=== PATIENT | male | born 1960 | race Caucasian/White ===

== ENCOUNTER 2020-10-14 14:56 | Emergency (ER) | payer OTHER ==
[2020-10-14] MEDS ORDERED: DEXAMETHASONE SOD PHOSPHATE INJ 4 MG/1 ML VIAL IV ONE (18:49)
[2020-10-14] MEDS ORDERED: NORMAL SALINE 1000 ML 1,000 ML IV ONE (18:50)
[2020-10-14] MEDS ORDERED: IPRATROPIUM/ALBUTEROL 0.5-2.5 MG/3 ML AMPUL NEB ONE (18:50)
[2020-10-14] MEDS ORDERED: KETOROLAC TROMETHAMINE INJ/PF 30 MG/1 ML SDV IV ONE (18:51)
[2020-10-14] MEDS ORDERED: ONDANSETRON HCL INJ/PF 4 MG/2 ML SDV IV ONE (18:51)
--- NOTE | 2020-10-14 18:58 | ER Document Report ---
ED General - General Chief Complaint: Cough Stated Complaint: COUGH,CONGESTION,DIARRHEA Time Seen by Provider: 10/14/20 16:49 Primary Care Provider: IKE MORELOS MD [Primary Care Provider] - Follow up as needed Mode of Arrival: Ambulatory Information source: Patient Notes: Patient is a 60-year-old male coming in today with chief complaints of symptoms consistent with COVID-19 diagnosis. Patient reports pleuritic chest pain, intractable cough, nausea, diarrhea, body aches, chills, and weakness. He had an instant test done a couple of days ago and was told that he had coronavirus. Said that if he got worse that he needed to come to the ER. Patient hoping to get some treatment for his symptoms. - Related Data Allergies/Adverse Reactions: No Known Allergies Allergy (Verified 10/14/20 16:38) Past Medical History - Social History Smoking Status: Former Smoker Chew tobacco use (# tins/day): No Frequency of alcohol use: Rare Drug Abuse: None Family History: Reviewed & Not Pertinent - Past Medical History Cardiac Medical History: Reports: Hx Heart Attack, Hx Hypercholesterolemia Past Surgical History: Reports: Hx Cardiac Catheterization - stent Review of Systems - Review of Systems Notes: Constitutional: No fevers. Positive body aches, positive malaise, positive chills EENT: No eye redness. No eye pain. No ear pain. No sore throat. Cardiovascular: + pleuritic chest pain. No palpitations. Respiratory: Positive for cough, positive for shortness of breath Gastrointestinal: No abdominal pain. No nausea, vomiting, or diarrhea. Genitourinary: Atraumatic. No lesions. No pain. No discharge. Musculoskeletal: Atraumatic. No swelling. No deformities. Skin: No rash or lesions. Lymphatic: No swollen lymph nodes. Neurologic: No headache. No syncope. Psychiatric: No suicidal or homicidal ideation. Physical Exam - Vital signs Vitals: Temp Pulse Resp BP Pulse Ox 99.8 F 93 20 132/71 H 96 10/14/20 15:03 10/14/20 15:03 10/14/20 15:03 10/14/20 15:03 10/14/20 15:03 - Notes Notes: General: Well-developed, well-nourished. In no acute distress. Non-toxic clive earing. Cardiac: Well-perfused. Regular rate and rhythm. No murmurs, rubs, or gallops. Pulmonary: No respiratory distress. No cyanosis. Bilateral lung fiels are clear to auscultation. Abdominal: Non-distended. Non-rigid. Bowels sounds are present in all four quadrants. No guarding or rebound. HEENT: Head is atraumatic. Conjunctivae not reddened. No tearing. PERRL. EOMI. Orbits atraumatic. No periorbital swelling or erythema. Oropharynx is without erythema, swelling, or exudates. Neck: Supple. No adenopathy. No meningismus. Dermatologic: Warm with good turgor. No rash. Atraumatic. Chest: Atraumatic. No chest wall tenderness to palpation. Musculoskeletal: Moves all extremities well. No range of motion deficits. no muscular or joint tenderness. No paraspinal muscle tenderness. no midline spinal tenderness or step-off. Genitourinary: Examination deferred Neurologic: No gross neurologic deficits. Psychiatric: Normal mood. Course - Re-evaluation Re-evalutation: 10/14/20 21:32 Labs reassuring. Chest x-ray also reassuring. Will start patient on Zithromax 500 daily for 5 days as well as 4 mg of dexamethasone daily for 5 days. Also albuterol inhaler 2 puffs every 4 hours as needed. Return to the ED if worse - Vital Signs Vital signs: Temp Pulse Resp BP Pulse Ox 99.8 F 93 20 132/71 H 96 10/14/20 15:03 10/14/20 15:03 10/14/20 15:03 10/14/20 15:03 10/14/20 15:03 - Laboratory Result Diagrams: 10/14/20 20:22 10/14/20 20:22 Laboratory results interpreted by me: 10/14/20 20:22 Sodium 136.1 L Discharge - Discharge Clinical Impression: COVID-19 Condition: Good Disposition: HOME, SELF-CARE Instructions: Viral Syndrome ([facility]) Prescriptions: Dexamethasone [Decadron] 4 mg PO DAILY 5 Days #5 tablet Albuterol Sulfate [Proair HFA Inhalation Aerosol 8.5 gm MDI] 2 puff IH Q4H PRN #1 mdi PRN Reason: Azithromycin [Zithromax 250 mg Tablet] 500 mg PO DAILY 5 Days #10 tab Referrals: IKE MORELOS MD [Primary Care Provider] - Follow up as needed
--- NOTE | 2020-10-14 19:17 | RADIOLOGY REPORT (SQ) ---
EXAM DESCRIPTION: CHEST 2 VIEWS IMAGES COMPLETED DATE/TIME: 10/14/2020 7:09 pm REASON FOR STUDY: cough/sob/covid+ COMPARISON: None. EXAM PARAMETERS: NUMBER OF VIEWS: two views TECHNIQUE: Digital Frontal and Lateral radiographic views of the chest acquired. RADIATION DOSE: NA LIMITATIONS: none FINDINGS: LUNGS AND PLEURA: Minimal parenchymal opacities in the right lung. Left lung clear. MEDIASTINUM AND HILAR STRUCTURES: No masses or contour abnormalities. HEART AND VASCULAR STRUCTURES: Heart normal size. No evidence for failure. BONES: No acute findings. HARDWARE: None in the chest. OTHER: No other significant finding. IMPRESSION: Minimal parenchymal opacities consistent with the known diagnosis of covid 19. TECHNICAL DOCUMENTATION: JOB ID: [id number] 2010 [employer]- All Rights Reserved Reading location - IP/workstation name: [email or web address]
[2020-10-14 20:36] LABS: ABSOLUTE LYMPHOCYTES (AUTO) 0.9 10^3/uL (0.5-4.7); ABSOLUTE MONOCYTES (AUTO) 0.3 10^3/uL (0.1-1.4); ABSOLUTE NEUT (AUTO) 2.8 10^3/uL (1.7-8.2); BASOPHILS % (AUTO) 0.3 % (0-2); EOSINOPHILS % (AUTO) 0.1 % (0-6); HEMATOCRIT 45.1 % (37.9-51.0); HEMOGLOBIN 15.3 g/dL (13.5-17.0); LYMPHOCYTES % (AUTO) 22.1 % (13-45); MEAN CORPUSCULAR HEMOGLOBIN 30.1 pg (27.0-33.4); MEAN CORPUSCULAR VOLUME 88 fl (80-97); MONOCYTES % (AUTO) 8.3 % (3-13); PLATELET COUNT 157 10^3/uL (150-450); RED CELL DISTRIBUTION WIDTH 13.5 % (11.5-14.0); SEGMENTED NEUTROPHILS % (AUTO) 69.2 % (42-78); TOTAL CELLS COUNTED % (AUTO) 100 %; WHITE BLOOD COUNT 4.1 10^3/uL (4.0-10.5)
[2020-10-14 20:58] LABS: ALKALINE PHOSPHATASE 62 U/L (38-126); ANION GAP 9 (5-19); ASPARTATE AMINO TRANSFERASE 45 U/L (17-59); BILIRUBIN,DIRECT 0.1 mg/dL (0.0-0.4); BILIRUBIN,TOTAL 0.7 mg/dL (0.2-1.3); BLOOD UREA NITROGEN 13 mg/dL (7-20); CALCIUM 8.7 mg/dL (8.4-10.2); CARBON DIOXIDE 27 mmol/L (22-30); CHLORIDE 100 mmol/L (98-107); GLUCOSE 104 mg/dL (75-110); POTASSIUM 4.5 mmol/L (3.6-5.0); TOTAL PROTEIN 7.2 g/dL (6.3-8.2)
[2020-10-14 21:52] VITALS: BP 107/67
== END 2020-10-14 21:49 | disposition home or self-care (01) ==
LOC: ER 14:56
DX: U07.1 COVID-19 (principal); R05 Cough; R19.7 Diarrhea, unspecified; E78.00 Pure hypercholesterolemia, unspecified; I25.2 Old myocardial infarction
CPT/HCPCS: 94640; 99284; 96361; 96374; 96375; 36415; 85025; 80053; 71046; J1100; J1885; J2405; J7030

== ENCOUNTER 2020-10-19 12:46 | Inpatient (IN) | payer OTHER ==
--- NOTE | 2020-10-19 16:33 | RADIOLOGY REPORT (SQ) ---
EXAM DESCRIPTION: CT CHEST WITHOUT IMAGES COMPLETED DATE/TIME: 10/19/2020 4:22 pm REASON FOR STUDY: Covid + COMPARISON: None. TECHNIQUE: CT scan performed of the chest without intravenous contrast. Images reviewed with lung, soft tissue and bone windows. Reconstructed coronal and sagittal MPR images reviewed. All images st ored on PACS. All CT scanners at this facility use dose modulation, iterative reconstruction, and/or weight based d osing when appropriate to reduce radiation dose to as low as reasonably achievable (ALARA). [facility]: Dose Right [facility]: CareDose [facility]: Dose Right [facility]: Teradose 4D [facility]: Snip.ly RADIATION DOSE: mGy. LIMITATIONS: No technical limitations. FINDINGS: LUNGS AND PLEURA: Patchy peripheral bilateral infiltrates involving the upper and lower lo bes. Basilar atelectasis. No suspicious nodules. No effusions. No pathologic adenopathy. HILAR AND MEDIASTINAL STRUCTURES: No identified masses or abnormal nodes. No obvious aneurysm. HEART AND VASCULAR STRUCTURES: No aneurysm. No pericardial effusion. UPPER ABDOMEN: Small nonobstructing stone in the right kidney. THYROID AND OTHER SOFT TISSUES: No masses. No adenopathy. BONES: No significant finding. HARDWARE: None in the chest. OTHER: No other significant findings. IMPRESSION: Bilateral peripheral ground-glass opacities consistent with the clinical history of Covi d 19. TECHNICAL DOCUMENTATION: JOB ID: [id number] Quality ID # [id number]: Final reports with documentation of one or more dose reduction techniques (e.g., Au tomated exposure control, adjustment of the mA and/or kV according to patient size, use of iterative reconstruction technique) 2010 [employer]- All Rights Reserved Reading location - IP/workstation name: [email or web address]
--- NOTE | 2020-10-19 17:36 | EKG REPORT ---
SEVERITY:- ABNORMAL ECG - SINUS RHYTHM NONSPECIFIC ST-T CHANGES- INFERIOR LEADS : Confirmed by: Gerardo Mahoney MD 19-Oct-2020 17:35:45
--- NOTE | 2020-10-19 17:39 | ER Document Report ---
ED General - General Chief Complaint: Shortness Of Breath Stated Complaint: COIVD + DIFFICULTY BREATHING Time Seen by Provider: 10/19/20 15:52 Primary Care Provider: IKE MORELOS MD [Primary Care Provider] - Follow up as needed Mode of Arrival: Ambulatory Information source: Patient - [facility] Notes: Patient presents with shortness of breath. Patient states that on 11 October he tested positive for Covid. He then came to the emergency department on the and received albuterol and steroids but he continues to be short of breath. He states he no longer has fevers body aches or diarrhea but continues to have significant shortness of breath. He states it is severe. It is worse with exertion and better with rest. It is constant. He states he also has severe cough especially with exertion. - Related Data Allergies/Adverse Reactions: No Known Allergies Allergy (Verified 10/19/20 13:34) Past Medical History - General Information source: Patient - Social History Smoking Status: Former Smoker Frequency of alcohol use: None Drug Abuse: None Family History: Reviewed & Not Pertinent - Past Medical History Cardiac Medical History: Reports: Hx Heart Attack, Hx Hypercholesterolemia Past Surgical History: Reports: Hx Cardiac Catheterization - stent Review of Systems - Review of Systems Constitutional: Chills, Fever, Malaise, Recent illness Cardiovascular: denies: Chest pain, Palpitations Respiratory: Cough, Short of breath -: Yes All other systems reviewed and negative Physical Exam - Vital signs Vitals: Temp Pulse Resp BP Pulse Ox 98.0 F 75 16 133/71 H 92 10/19/20 13:06 10/19/20 13:06 10/19/20 13:06 10/19/20 13:06 10/19/20 13:06 Interpretation: Hypoxic, Tachypneic - General General appearance: Appears well, Alert - HEENT Head: Normocephalic, Atraumatic Eyes: Normal Pupils: PERRL - Respiratory Respiratory status: Respiratory distress - mild Breath sounds: Nonproductive cough - Cardiovascular Rhythm: Regular Notes: no jvd - Abdominal Inspection: Normal Distension: No distension - Back Back: Normal, Nontender - Extremities General upper extremity: Normal inspection, Normal color, Normal ROM General lower extremity: Normal inspection, Normal color, Normal ROM, Normal weight bearing. No: Dora's sign - Neurological Neuro grossly intact: Yes Cognition: Normal Orientation: AAOx4 [place] Coma Scale Eye Opening: Spontaneous [place] Coma Scale Verbal: Oriented [place] Coma Scale Motor: Obeys Commands [place] Coma Scale Total: 15 Speech: Normal Motor strength normal: LUE, RUE, LLE, RLE Sensory: Normal - Psychological Associated symptoms: Normal affect, Normal mood - Skin Skin Moisture: Dry Skin Color: Normal Course - Re-evaluation Re-evalutation: 10/19/20 17:45 Patient presents with shortness of breath, positive Covid infection, positive bilateral opacities on CT with tachypnea and hypoxia. He will require admission for further therapy. The patient was evaluated during a global COVID-19 pandemic and that diagnosis was suspected/considered upon their initial presentation. Their evaluation, treatment and testing was consistent with current guidelines for patients who present with complaints or symptoms and may be related to COVID-19. 10/19/20 17:45 - Vital Signs Vital signs: Temp Pulse Resp BP Pulse Ox 98.0 F 75 16 133/71 H 92 10/19/20 13:06 10/19/20 13:06 10/19/20 13:06 10/19/20 13:06 10/19/20 13:06 - Diagnostic Test Radiology reviewed: Image reviewed, Reports reviewed - EKG Interpretation by Ms EKG shows normal: Sinus rhythm Rate: Bradycardia - 57 Rhythm: NSR [place]/QRS: No: Right axis deviation, Left axis deviation Discharge - Discharge Clinical Impression: Pneumonia due to COVID-19 virus, Hypoxia Condition: Serious Disposition: ADMITTED INPATIENT Admitting Provider: Viky (Hospitalist) Unit Admitted: [facility] Referrals: IKE MORELOS MD [Primary Care Provider] - Follow up as needed
[2020-10-19 18:12] LABS: HEMATOCRIT 41.3 % (37.9-51.0); HEMOGLOBIN 14.2 g/dL (13.5-17.0); MEAN CORPUSCULAR HEMOGLOBIN 30.7 pg (27.0-33.4); MEAN CORPUSCULAR HGB CONC 34.4 g/dL (32.0-36.0); MEAN CORPUSCULAR VOLUME 89 fl (80-97); PLATELET COUNT 266 10^3/uL (150-450); RED BLOOD COUNT 4.63 10^6/uL (4.35-5.55); RED CELL DISTRIBUTION WIDTH 13.7 % (11.5-14.0); WHITE BLOOD COUNT 13.4 10^3/uL (4.0-10.5)
[2020-10-19 18:19] LABS: ALBUMIN 3.2 g/dL (3.5-5.0); ALKALINE PHOSPHATASE 80 U/L (38-126); ANION GAP 10 (5-19); ASPARTATE AMINO TRANSFERASE 87 U/L (17-59); BILIRUBIN,DIRECT 0.1 mg/dL (0.0-0.4); BILIRUBIN,TOTAL 0.7 mg/dL (0.2-1.3); BLOOD UREA NITROGEN 18 mg/dL (7-20); CALCIUM 8.2 mg/dL (8.4-10.2); CARBON DIOXIDE 22 mmol/L (22-30); CHLORIDE 107 mmol/L (98-107); GLUCOSE 157 mg/dL (75-110); IRON 30.3 ug/dL (49-181); POTASSIUM 4.3 mmol/L (3.6-5.0); TOTAL PROTEIN 6.4 g/dL (6.3-8.2)
[2020-10-19] MEDS ORDERED: ACETAMINOPHEN 325 MG TABLET PO PRN (18:30)
[2020-10-19 18:31] LABS: ABSOLUTE LYMPHOCYTES# (MANUAL) 0.5 10^3/uL (0.5-4.7); ABSOLUTE MONOCYTES # (MANUAL) 0.3 10^3/uL (0.1-1.4); BASOPHILS % (MANUAL) 0 % (0-2); EOSINOPHILS % (MANUAL) 0 % (0-6); LYMPHOCYTES % (MANUAL) 4 % (13-45); MONOCYTES % (MANUAL) 2 % (3-13); SEGMENTED NEUTROPHILS % (MAN) 94 % (42-78); TOTAL CELLS COUNTED 100
[2020-10-19 18:37] LABS: OVALOCYTES SLIGHT; PLATELET COMMENT ADEQUATE; PLATELET LARGE PRESENT; POIKILOCYTOSIS SLIGHT
[2020-10-19] MEDS ORDERED: ONDANSETRON HCL INJ/PF 4 MG/2 ML SDV IV PRN (18:39)
--- NOTE | 2020-10-19 18:49 | PDOC H&P ---
History of Present Illness Admission Date/PCP: 10/19/20 17:52 IKE MORELOS MD History of Present Illness: LEO CURRY is a 60 year old male with a history of coronary artery disease and a 30-year smoking history who quit 8 years ago who presents with dyspnea. He said he started getting sick on or about 08 October 2020. He said a few days later he went to get tested for Covid on 11 October. He said the test was positive. He came here on 14 October and was given some IV medication, a prescription for dexamethasone and azithromycin, and was sent home. He said he was feeling okay until yesterday when he started getting more short of breath. He said it is more prominent on exertion. He has had a cough. He has not been febrile that he is aware of. His dyspnea on exertion got to the point that he could not walk more than a few steps without getting very short of breath. He is normally very active and works full-time and has no physical limitations. His oxygen saturations are less than 94% on room air in the ER, and his chest imaging showed that he had bilateral alveolar opacities. Past Medical History Cardiac Medical History: Reports: Myocardial Infarction, Hyperlipidema Past Surgical History Past Surgical History: Reports: Cardiac Catheterization - stent Social History Smoking Status: Former Smoker Family History Family History: Reviewed & Not Pertinent Parental Family History Reviewed: Yes Children Family History Reviewed: Yes Sibling(s) Family History Reviewed.: Yes Medication/Allergy Home Medications: Albuterol Sulfate [Proair HFA Inhalation Aerosol 8.5 gm MDI] 2 puff IH Q4H PRN #1 mdi 10/14/20 Azithromycin [Zithromax 250 mg Tablet] 500 mg PO DAILY 5 Days #10 tab 10/14/20 Dexamethasone [Decadron] 4 mg PO DAILY 5 Days #5 tablet 10/14/20 Allergies/Adverse Reactions: No Known Allergies Allergy (Verified 10/19/20 13:34) Review of Systems All systems: reviewed and no additional remarkable complaints except as stated - All systems were reviewed and were negative except as noted in the HPI Physical Exam Vital Signs: Temp Pulse Resp BP Pulse Ox 98.0 F 75 16 133/71 H 92 10/19/20 13:06 10/19/20 13:06 10/19/20 13:06 10/19/20 13:06 10/19/20 13:06 Intake & Output 10/18/20 10/19/20 10/20/20 06:59 06:59 06:59 Weight 96 kg General appearance: PRESENT: no acute distress, cooperative, obese Neck exam: PRESENT: full ROM. ABSENT: carotid bruit, JVD, lymphadenopathy, meningismus, tenderness, thyromegaly Respiratory exam: PRESENT: crackles - Bibasilar, symmetrical, unlabored. ABSENT: accessory muscle use, chest wall tenderness, decreased breath sounds, prolonged expiratory phas, rhonchi, tachypnea, wheezes Cardiovascular exam: PRESENT: RRR, +S1, +S2 Pulses: PRESENT: normal carotid pulses Vascular exam: PRESENT: normal capillary refill GI/Abdominal exam: PRESENT: normal bowel sounds, soft. ABSENT: distended, guarding, rebound, tenderness Extremities exam: ABSENT: clubbing, pedal edema Musculoskeletal exam: PRESENT: normal inspection. ABSENT: deformity Neurological exam: PRESENT: alert, awake, oriented to person, oriented to place, oriented to time, oriented to situation, CN II-XII grossly intact. ABSENT: motor sensory deficit Psychiatric exam: PRESENT: appropriate affect, normal mood Skin exam: PRESENT: dry, warm Results Laboratory Results: 10/19/20 17:45 10/19/20 17:45 WBC 13.4 H RBC 4.63 Hgb 14.2 Hct 41.3 MCV 89 MCH 30.7 MCHC 34.4 RDW 13.7 Plt Count 266 Seg Neutrophils % Not Reportable Impressions: Chest CT 10/19/20 15:55 IMPRESSION: Bilateral peripheral ground-glass opacities consistent with the clinical history of Covid 19. Assessment and Plan - Diagnosis (1) Pneumonia due to COVID-19 virus Is this a current diagnosis for this admission?: Yes (2) Acute hypoxemic respiratory failure Is this a current diagnosis for this admission?: Yes (3) Coronary artery disease Qualifiers: Coronary Disease-Associated Artery/Lesion type: [place] artery [place] vs. transplanted heart: [place] heart Associated angina: without angina Qualified Code(s): I25.10 - Atherosclerotic heart disease of [place] coronary artery without angina pectoris Is this a current diagnosis for this admission?: Yes (4) Former smoker Is this a current diagnosis for this admission?: Yes - Plan Summary Summary: Continue oxygen support. We will started on remdesivir. We will start dexamethasone daily. We will continue his home medications will see her in the computer. His D-dimer was less than 1 so we will just put him on prophylaxis level Lovenox at this point. We will follow the trend his CRP and ferritin. - Time Time Spent with patient: 35 or more minutes Anticipated Discharge Disposition: Unknown Anticipated Discharge Timeframe: Unknown - Inpatient Certification Based on my medical assessment, after consideration of the patient's comorbidities, presenting symptoms, or acuity I expect that the services needed warrant INPATIENT care.: Yes I certify that my determination is in accordance with my understanding of Medicare's requirements for reasonable and necessary INPATIENT services [42 CFR 412.3e].: Yes Medical Necessity: Failure to Improve With Outpatient Therapy, Need Close Monitoring Due to Risk of Patient Decompensation, Need For Continuous Telemetry Monitoring, Risk of Complication if Not Cared For in Hospital
[2020-10-19] MEDS ORDERED: DEXAMETHASONE SOD PHOS INJ 10 MG/1 ML VIAL IV ONE (19:30)
[2020-10-19] MEDS ORDERED: REMDESIVIR 200 MG in NORMAL SALINE 250 ML IV ONE (21:00)
[2020-10-20] MEDS ORDERED: TICAGRELOR 90 MG TABLET ONE (00:41)
[2020-10-20] MEDS: TICAGRELOR 90 MG TABLET PO SCH ×3 (00:54→22:34)
[2020-10-20] MEDS: RANOLAZINE 500 MG TAB.SR.12H PO SCH ×3 (00:54→22:35)
[2020-10-20 06:39] LABS: HEMOGLOBIN 14.1 g/dL (13.5-17.0); MEAN CORPUSCULAR HEMOGLOBIN 30.8 pg (27.0-33.4); MEAN CORPUSCULAR HGB CONC 34.5 g/dL (32.0-36.0); MEAN CORPUSCULAR VOLUME 89 fl (80-97); PLATELET COUNT 253 10^3/uL (150-450); RED BLOOD COUNT 4.59 10^6/uL (4.35-5.55); RED CELL DISTRIBUTION WIDTH 13.7 % (11.5-14.0); WHITE BLOOD COUNT 11.2 10^3/uL (4.0-10.5)
[2020-10-20 06:58] LABS: ALKALINE PHOSPHATASE 71 U/L (38-126); ANION GAP 9 (5-19); ASPARTATE AMINO TRANSFERASE 56 U/L (17-59); BILIRUBIN,DIRECT 0.1 mg/dL (0.0-0.4); BILIRUBIN,TOTAL 0.5 mg/dL (0.2-1.3); BLOOD UREA NITROGEN 21 mg/dL (7-20); C-REACTIVE PROTEIN 81.5 mg/L (<10.0); CALCIUM 8.6 mg/dL (8.4-10.2); CARBON DIOXIDE 24 mmol/L (22-30); CHLORIDE 107 mmol/L (98-107); GLUCOSE 144 mg/dL (75-110); POTASSIUM 4.2 mmol/L (3.6-5.0); TOTAL PROTEIN 6.1 g/dL (6.3-8.2)
[2020-10-20 07:49] LABS: ABSOLUTE MONOCYTES # (MANUAL) 0.3 10^3/uL (0.1-1.4); BASOPHILS % (MANUAL) 0 % (0-2); EOSINOPHILS % (MANUAL) 0 % (0-6); LYMPHOCYTES % (MANUAL) 9 % (13-45); MONOCYTES % (MANUAL) 3 % (3-13); SEGMENTED NEUTROPHILS % (MAN) 88 % (42-78); TOTAL CELLS COUNTED 100
[2020-10-20 07:50] LABS: POIKILOCYTOSIS SLIGHT; TEAR DROP CELLS SLIGHT
[2020-10-20 07:51] LABS: PLATELET COMMENT ADEQUATE
[2020-10-20] MEDS ORDERED: INFLUENZA QUAD (6MOS+) 2020-21 VAC 0.5 ML SYR IM ONE (08:00)
[2020-10-20] MEDS: ENOXAPARIN SODIUM INJ 40 MG/0.4 ML DISP.SYRIN SUBCUT SCH (09:09)
[2020-10-20] MEDS: ASPIRIN 81 MG TABLET, ENT COATED PO SCH (09:10)
[2020-10-20] MEDS: LOSARTAN POTASSIUM 25 MG TABLET PO SCH (09:10)
[2020-10-20] MEDS: PANTOPRAZOLE SODIUM 20 MG TABLET.DR PO SCH (09:10)
[2020-10-20] MEDS: METOPROLOL SUCCINATE 25 MG TAB.SR.24H PO SCH (09:10)
[2020-10-20] MEDS ORDERED: DEXAMETHASONE SOD PHOS INJ 10 MG/1 ML VIAL IV SCH (10:00)
[2020-10-20] MEDS: DEXAMETHASONE SOD PHOSPHATE INJ 4 MG/1 ML VIAL IV SCH ×2 (10:54→22:35)
--- NOTE | 2020-10-20 15:38 | PDOC PROGRESS REPORT ---
Subjective Date:: 10/20/20 Subjective:: No adverse events overnight. No new complaints. Vital signs been stable. SPO2 still very stable on 2 L per nasal cannula at rest. He said that he is fine while he is at rest, but he still gets short of breath with very minimal exertion. Reason For Visit: PNEUMONIA DUE TO COVID-19 VIRUS,HYPOXIA Physical Exam Vital Signs: Temp Pulse Resp BP Pulse Ox 97.7 F 83 18 124/76 95 10/20/20 11:49 10/20/20 13:19 10/20/20 11:49 10/20/20 11:49 10/20/20 11:49 Intake & Output 10/19/20 10/20/20 10/21/20 06:59 06:59 06:59 Intake Total 250 Balance 250 Weight 84.6 kg 84.6 kg General appearance: PRESENT: no acute distress, cooperative, obese Respiratory exam: PRESENT: crackles - Bibasilar, symmetrical, unlabored. ABSENT: accessory muscle use, chest wall tenderness, decreased breath sounds, prolonged expiratory phas, rhonchi, tachypnea, wheezes Cardiovascular exam: PRESENT: RRR, +S1, +S2 Pulses: PRESENT: normal carotid pulses Vascular exam: PRESENT: normal capillary refill GI/Abdominal exam: PRESENT: normal bowel sounds, soft. ABSENT: distended, guarding, rebound, tenderness Extremities exam: ABSENT: clubbing, pedal edema Musculoskeletal exam: PRESENT: normal inspection. ABSENT: deformity Neurological exam: PRESENT: alert, awake, oriented to person, oriented to place, oriented to time, oriented to situation Psychiatric exam: PRESENT: appropriate affect, normal mood Skin exam: PRESENT: dry, warm Results Laboratory Results: 10/20/20 05:42 10/20/20 05:42 10/19/20 10/19/20 10/20/20 17:45 17:45 05:42 WBC 13.4 H 11.2 H RBC 4.63 4.59 Hgb 14.2 14.1 Hct 41.3 41.0 MCV 89 89 MCH 30.7 30.8 MCHC 34.4 34.5 RDW 13.7 13.7 Plt Count 266 253 Seg Neutrophils % Not Reportable Not Reportable Sodium 138.7 Potassium 4.3 Chloride 107 Carbon Dioxide 22 Anion Gap 10 BUN 18 Creatinine 0.76 Est GFR ( Amer) > 60 Glucose 157 H Calcium 8.2 L Iron 30.3 L Ferritin 915.00 H Total Bilirubin 0.7 AST 87 H Alkaline Phosphatase 80 C-Reactive Protein Total Protein 6.4 Albumin 3.2 L 10/20/20 05:42 WBC RBC Hgb Hct MCV MCH MCHC RDW Plt Count Seg Neutrophils % Sodium 139.5 Potassium 4.2 Chloride 107 Carbon Dioxide 24 Anion Gap 9 BUN 21 H Creatinine 0.77 Est GFR ( Amer) > 60 Glucose 144 H Calcium 8.6 Iron Ferritin 796.00 H Total Bilirubin 0.5 AST 56 Alkaline Phosphatase 71 C-Reactive Protein 81.5 H Total Protein 6.1 L Albumin 3.0 L Impressions: Chest CT 10/19/20 15:55 IMPRESSION: Bilateral peripheral ground-glass opacities consistent with the clinical history of Covid 19. Assessment and Plan - Diagnosis (1) Pneumonia due to COVID-19 virus Is this a current diagnosis for this admission?: Yes (2) Acute hypoxemic respiratory failure Is this a current diagnosis for this admission?: Yes (3) Coronary artery disease Qualifiers: Coronary Disease-Associated Artery/Lesion type: [place] artery [place] vs. transplanted heart: [place] heart Associated angina: without angina Qualified Code(s): I25.10 - Atherosclerotic heart disease of [place] coronary artery without angina pectoris Is this a current diagnosis for this admission?: Yes (4) Former smoker Is this a current diagnosis for this admission?: Yes - Plan Summary Summary: Continue oxygen support. Continue remdesivir. Continue dexamethasone daily. We will continue his home medications. His D-dimer was less than 1 so we just put him on prophylaxis level Lovenox at this point. We will follow the trend his CRP and ferritin. - Time Time Spent with patient: 15-24 minutes Anticipated Discharge Disposition: Unknown Anticipated Discharge Timeframe: Unknown
[2020-10-20] MEDS: ATORVASTATIN CALCIUM 80 MG TABLET PO SCH (22:34)
[2020-10-20] MEDS: REMDESIVIR 100 MG in NORMAL SALINE 250 ML IV SCH (22:36)
[2020-10-21 07:13] LABS: HEMATOCRIT 40.1 % (37.9-51.0); HEMOGLOBIN 13.8 g/dL (13.5-17.0); MEAN CORPUSCULAR HEMOGLOBIN 30.6 pg (27.0-33.4); MEAN CORPUSCULAR HGB CONC 34.5 g/dL (32.0-36.0); MEAN CORPUSCULAR VOLUME 89 fl (80-97); PLATELET COUNT 300 10^3/uL (150-450); RED BLOOD COUNT 4.52 10^6/uL (4.35-5.55); RED CELL DISTRIBUTION WIDTH 13.7 % (11.5-14.0); WHITE BLOOD COUNT 15.4 10^3/uL (4.0-10.5)
[2020-10-21 07:23] LABS: ALBUMIN 2.7 g/dL (3.5-5.0); ALKALINE PHOSPHATASE 66 U/L (38-126); ANION GAP 8 (5-19); ASPARTATE AMINO TRANSFERASE 64 U/L (17-59); BILIRUBIN,DIRECT 0.2 mg/dL (0.0-0.4); BILIRUBIN,TOTAL 0.7 mg/dL (0.2-1.3); BLOOD UREA NITROGEN 27 mg/dL (7-20); C-REACTIVE PROTEIN 41.8 mg/L (<10.0); CALCIUM 8.3 mg/dL (8.4-10.2); CARBON DIOXIDE 24 mmol/L (22-30); CHLORIDE 106 mmol/L (98-107); GLUCOSE 153 mg/dL (75-110); POTASSIUM 4.3 mmol/L (3.6-5.0); TOTAL PROTEIN 5.7 g/dL (6.3-8.2)
[2020-10-21 07:59] LABS: ABSOLUTE LYMPHOCYTES# (MANUAL) 0.8 10^3/uL (0.5-4.7); ABSOLUTE MONOCYTES # (MANUAL) 0.5 10^3/uL (0.1-1.4); BAND NEUTROPHILS % (MANUAL) 1 % (3-5); BASOPHILS % (MANUAL) 0 % (0-2); EOSINOPHILS % (MANUAL) 0 % (0-6); LYMPHOCYTES % (MANUAL) 4 % (13-45); MONOCYTES % (MANUAL) 3 % (3-13); SEGMENTED NEUTROPHILS % (MAN) 88 % (42-78); TOTAL CELLS COUNTED 100
[2020-10-21 08:14] LABS: ANISOCYTOSIS SLIGHT; POLYCHROMASIA SLIGHT
[2020-10-21 08:15] LABS: PLATELET COMMENT ADEQUATE; PROMYELOCYTES % (MANUAL) 3 % (0)
[2020-10-21] MEDS: METOPROLOL SUCCINATE 25 MG TAB.SR.24H PO SCH (10:22)
[2020-10-21] MEDS: LOSARTAN POTASSIUM 25 MG TABLET PO SCH (10:30)
[2020-10-21] MEDS: RANOLAZINE 500 MG TAB.SR.12H PO SCH ×2 (10:31→21:21)
[2020-10-21] MEDS: TICAGRELOR 90 MG TABLET PO SCH ×2 (10:31→21:21)
[2020-10-21] MEDS: DEXAMETHASONE SOD PHOSPHATE INJ 4 MG/1 ML VIAL IV SCH ×2 (10:31→21:21)
[2020-10-21] MEDS: PANTOPRAZOLE SODIUM 20 MG TABLET.DR PO SCH (10:31)
[2020-10-21] MEDS: ENOXAPARIN SODIUM INJ 40 MG/0.4 ML DISP.SYRIN SUBCUT SCH (10:31)
[2020-10-21] MEDS: ASPIRIN 81 MG TABLET, ENT COATED PO SCH (10:31)
[2020-10-21] MEDS ORDERED: MORPHINE SULFATE 10 MG/ML INJ IV PRN (11:04)
[2020-10-21] MEDS ORDERED: IPRATROPIUM/ALBUTEROL 0.5-2.5 MG/3 ML AMPUL NEB PRN (11:04)
[2020-10-21 12:10] LABS: PATH REVIEW PATHOLOGIST REVIEWED
--- NOTE | 2020-10-21 13:13 | PDOC PROGRESS REPORT ---
Subjective Date:: 10/21/20 Subjective:: As per admitting physician's note LEO CURRY is a 60 year old male with a history of coronary artery disease and a 30-year smoking history who quit 8 years ago who presents with dyspnea. He said he started getting sick on or about 08 October 2020. He said a few days later he went to get tested for Covid on 11 October. He said the test was positive. He came here on Sep and was given some IV medication, a prescription for dexamethasone and azithromycin, and was sent home. He said he was feeling okay until yesterday when he started getting more short of breath. He said it is more prominent on exertion. He has had a cough. He has not been febrile that he is aware of. His dyspnea on exertion got to the point that he could not walk more than a few steps without getting very short of breath. He is normally very active and works full-time and has no physical limitations. His oxygen saturations are less than 94% on room air in the ER, and his chest imaging showed that he had bilateral alveolar opacities. 10/21/2020. Patient reporting mild improvement of her symptoms, still getting winded when he tries to exert himself, denies any fever, chills, nausea, vomiting. Complaining of nonproductive cough. Vitals have been stable, SPO2 WNL on 2 L. On second day of remdesivir. Reason For Visit: PNEUMONIA DUE TO COVID-19 VIRUS,HYPOXIA Physical Exam Vital Signs: Temp Pulse Resp BP Pulse Ox 98.2 F 58 L 16 131/72 H 91 L 10/21/20 12:09 10/21/20 12:09 10/21/20 12:09 10/21/20 12:09 10/21/20 12:09 Intake & Output 10/20/20 10/21/20 10/22/20 06:59 06:59 06:59 Intake Total 250 707 Output Total 825 Balance 250 -118 Weight 84.6 kg 87.1 kg General appearance: PRESENT: no acute distress, well-developed, well-nourished Head exam: PRESENT: atraumatic, normocephalic Neck exam: ABSENT: carotid bruit, JVD, lymphadenopathy, thyromegaly Respiratory exam: PRESENT: tachypnea, other - Diminished air entry bilaterally. ABSENT: rales, rhonchi, wheezes Cardiovascular exam: PRESENT: RRR. ABSENT: diastolic murmur, rubs, systolic murmur GI/Abdominal exam: PRESENT: normal bowel sounds, soft. ABSENT: distended, guarding, mass, organolmegaly, rebound, tenderness Extremities exam: PRESENT: full ROM. ABSENT: calf tenderness, clubbing, pedal edema Neurological exam: PRESENT: alert, awake, oriented to person, oriented to place, oriented to time, oriented to situation, CN II-XII grossly intact. ABSENT: motor sensory deficit Results Laboratory Results: 10/21/20 05:48 10/21/20 05:48 10/21/20 10/21/20 05:48 05:48 WBC 15.4 H RBC 4.52 Hgb 13.8 Hct 40.1 MCV 89 MCH 30.6 MCHC 34.5 RDW 13.7 Plt Count 300 Seg Neutrophils % Not Reportable Sodium 137.5 Potassium 4.3 Chloride 106 Carbon Dioxide 24 Anion Gap 8 BUN 27 H Creatinine 0.76 Est GFR ( Amer) > 60 Glucose 153 H Calcium 8.3 L Ferritin 947.00 H Total Bilirubin 0.7 AST 64 H Alkaline Phosphatase 66 C-Reactive Protein 41.8 H Total Protein 5.7 L Albumin 2.7 L Impressions: Chest CT 10/19/20 15:55 IMPRESSION: Bilateral peripheral ground-glass opacities consistent with the clinical history of Covid 19. Assessment and Plan - Diagnosis (1) Acute hypoxemic respiratory failure Is this a current diagnosis for this admission?: Yes Plan: Improving. SPO2 WNL on 2 L nasal cannula. Most likely due to COVID-[address] chest on admission bilateral peripheral groundglass opacity consistent with clinical history of COVID-19. Day 2 IV remdesivir. Day 1 IV ceftriaxone. Completed course of azithromycin as outpatient. Continue empiric IV antibiotics, remdesivir, steroids, duo nebs, supplemental oxygen, flutter valve, incentive spirometry. (2) Coronary artery disease Qualifiers: Coronary Disease-Associated Artery/Lesion type: [place] artery [place] vs. transplanted heart: [place] heart Associated angina: without angina Qualified Code(s): I25.10 - Atherosclerotic heart disease of [place] coronary artery without angina pectoris Is this a current diagnosis for this admission?: Yes Plan: Denies any anginal symptoms. Continue home meds. Adjust meds as needed. Outpatient PCP and cardiology follow-up. (3) Former smoker Is this a current diagnosis for this admission?: Yes Plan: Counseled on abstinence. (4) Pneumonia due to COVID-19 virus Is this a current diagnosis for this admission?: Yes Plan: As per patient tested positive for COVID-19 on 10/11/2020. Plan of care as per #1. - Time Time Spent with patient: 25-34 minutes Medications reviewed and adjusted accordingly: Yes Anticipated Discharge Disposition: Home, Self Care Anticipated Discharge Timeframe: within 72 hours
[2020-10-21] MEDS: IPRATROPIUM/ALBUTEROL 0.5-2.5 MG/3 ML AMPUL NEB SCH ×2 (14:00→20:25)
[2020-10-21] MEDS: CEFTRIAXONE 1 GM/D5W RTU 1 GM/50 ML RTUPB IV SCH (14:20)
[2020-10-21] MEDS: GUAIFENESIN/D-METHORPHAN (200-20 MG) SYRUP 10 ML PO SCH ×3 (14:20→21:21)
[2020-10-21] MEDS: ATORVASTATIN CALCIUM 80 MG TABLET PO SCH (21:21)
[2020-10-21] MEDS: REMDESIVIR 100 MG in NORMAL SALINE 250 ML IV SCH (21:21)
[2020-10-22 06:57] LABS: HEMATOCRIT 41.9 % (37.9-51.0); MEAN CORPUSCULAR HEMOGLOBIN 29.6 pg (27.0-33.4); MEAN CORPUSCULAR HGB CONC 33.4 g/dL (32.0-36.0); MEAN CORPUSCULAR VOLUME 89 fl (80-97); PLATELET COUNT 315 10^3/uL (150-450); RED BLOOD COUNT 4.74 10^6/uL (4.35-5.55); RED CELL DISTRIBUTION WIDTH 13.4 % (11.5-14.0); WHITE BLOOD COUNT 14.1 10^3/uL (4.0-10.5)
[2020-10-22 07:27] LABS: ALBUMIN 2.7 g/dL (3.5-5.0); ALKALINE PHOSPHATASE 66 U/L (38-126); ANION GAP 5 (5-19); ASPARTATE AMINO TRANSFERASE 38 U/L (17-59); BILIRUBIN,DIRECT 0.1 mg/dL (0.0-0.4); BILIRUBIN,TOTAL 0.6 mg/dL (0.2-1.3); BLOOD UREA NITROGEN 26 mg/dL (7-20); C-REACTIVE PROTEIN 19.4 mg/L (<10.0); CALCIUM 8.2 mg/dL (8.4-10.2); CARBON DIOXIDE 26 mmol/L (22-30); CHLORIDE 105 mmol/L (98-107); GLUCOSE 144 mg/dL (75-110); POTASSIUM 4.5 mmol/L (3.6-5.0); TOTAL PROTEIN 5.8 g/dL (6.3-8.2)
[2020-10-22 07:31] LABS: ABSOLUTE LYMPHOCYTES# (MANUAL) 0.6 10^3/uL (0.5-4.7); ABSOLUTE MONOCYTES # (MANUAL) 0.3 10^3/uL (0.1-1.4); BASOPHILS % (MANUAL) 0 % (0-2); EOSINOPHILS % (MANUAL) 0 % (0-6); LYMPHOCYTES % (MANUAL) 4 % (13-45); MONOCYTES % (MANUAL) 2 % (3-13); PLATELET CLUMPS PRESENT; PLATELET COMMENT ADEQUATE; RBC MORPHOLOGY COMMENT NORMO-CYTIC/CHROMIC; SEGMENTED NEUTROPHILS % (MAN) 94 % (42-78); TOTAL CELLS COUNTED 100
[2020-10-22] MEDS: IPRATROPIUM/ALBUTEROL 0.5-2.5 MG/3 ML AMPUL NEB SCH ×3 (08:43→20:26)
[2020-10-22] MEDS: RANOLAZINE 500 MG TAB.SR.12H PO SCH ×2 (09:08→21:30)
[2020-10-22] MEDS: LOSARTAN POTASSIUM 25 MG TABLET PO SCH (09:08)
[2020-10-22] MEDS: METOPROLOL SUCCINATE 25 MG TAB.SR.24H PO SCH (09:08)
[2020-10-22] MEDS: ASPIRIN 81 MG TABLET, ENT COATED PO SCH (09:08)
[2020-10-22] MEDS: DEXAMETHASONE SOD PHOSPHATE INJ 4 MG/1 ML VIAL IV SCH ×2 (09:09→21:30)
[2020-10-22] MEDS: TICAGRELOR 90 MG TABLET PO SCH ×2 (09:09→21:31)
[2020-10-22] MEDS: CEFTRIAXONE 1 GM/D5W RTU 1 GM/50 ML RTUPB IV SCH (09:09)
[2020-10-22] MEDS: ENOXAPARIN SODIUM INJ 40 MG/0.4 ML DISP.SYRIN SUBCUT SCH (09:09)
[2020-10-22] MEDS: GUAIFENESIN/D-METHORPHAN (200-20 MG) SYRUP 10 ML PO SCH ×4 (09:09→21:30)
[2020-10-22] MEDS: PANTOPRAZOLE SODIUM 20 MG TABLET.DR PO SCH (09:09)
[2020-10-22] MEDS: REMDESIVIR 100 MG in NORMAL SALINE 250 ML IV SCH (21:29)
[2020-10-22] MEDS: ATORVASTATIN CALCIUM 80 MG TABLET PO SCH (21:31)
[2020-10-23 07:19] LABS: HEMOGLOBIN 14.2 g/dL (13.5-17.0); MEAN CORPUSCULAR HEMOGLOBIN 29.8 pg (27.0-33.4); MEAN CORPUSCULAR HGB CONC 33.7 g/dL (32.0-36.0); MEAN CORPUSCULAR VOLUME 89 fl (80-97); PLATELET COUNT 298 10^3/uL (150-450); RED BLOOD COUNT 4.74 10^6/uL (4.35-5.55); RED CELL DISTRIBUTION WIDTH 13.4 % (11.5-14.0); WHITE BLOOD COUNT 15.3 10^3/uL (4.0-10.5)
[2020-10-23 07:43] LABS: ALBUMIN 2.8 g/dL (3.5-5.0); ALKALINE PHOSPHATASE 68 U/L (38-126); ANION GAP 5 (5-19); ASPARTATE AMINO TRANSFERASE 34 U/L (17-59); BILIRUBIN,DIRECT 0.1 mg/dL (0.0-0.4); BILIRUBIN,TOTAL 0.6 mg/dL (0.2-1.3); BLOOD UREA NITROGEN 28 mg/dL (7-20); C-REACTIVE PROTEIN 19.6 mg/L (<10.0); CALCIUM 8.3 mg/dL (8.4-10.2); CARBON DIOXIDE 27 mmol/L (22-30); CHLORIDE 102 mmol/L (98-107); GLUCOSE 156 mg/dL (75-110); POTASSIUM 4.8 mmol/L (3.6-5.0); TOTAL PROTEIN 5.7 g/dL (6.3-8.2)
[2020-10-23 08:07] LABS: ABSOLUTE LYMPHOCYTES# (MANUAL) 2.3 10^3/uL (0.5-4.7); ABSOLUTE MONOCYTES # (MANUAL) 0.6 10^3/uL (0.1-1.4); BAND NEUTROPHILS % (MANUAL) 2 % (3-5); BASOPHILS % (MANUAL) 0 % (0-2); EOSINOPHILS % (MANUAL) 0 % (0-6); LYMPHOCYTES % (MANUAL) 15 % (13-45); MONOCYTES % (MANUAL) 4 % (3-13); SEGMENTED NEUTROPHILS % (MAN) 79 % (42-78); TOTAL CELLS COUNTED 100
[2020-10-23 08:08] LABS: PLATELET CLUMPS PRESENT; PLATELET COMMENT ADEQUATE; RBC MORPHOLOGY COMMENT NORMO-CYTIC/CHROMIC
[2020-10-23] MEDS: IPRATROPIUM/ALBUTEROL 0.5-2.5 MG/3 ML AMPUL NEB SCH ×3 (08:43→20:40)
[2020-10-23] MEDS: PANTOPRAZOLE SODIUM 20 MG TABLET.DR PO SCH (10:28)
[2020-10-23] MEDS: RANOLAZINE 500 MG TAB.SR.12H PO SCH ×2 (10:28→22:07)
[2020-10-23] MEDS: LOSARTAN POTASSIUM 25 MG TABLET PO SCH (10:28)
[2020-10-23] MEDS: ASPIRIN 81 MG TABLET, ENT COATED PO SCH (10:28)
[2020-10-23] MEDS: METOPROLOL SUCCINATE 25 MG TAB.SR.24H PO SCH (10:28)
[2020-10-23] MEDS: GUAIFENESIN/D-METHORPHAN (200-20 MG) SYRUP 10 ML PO SCH ×4 (10:29→22:07)
[2020-10-23] MEDS: ENOXAPARIN SODIUM INJ 40 MG/0.4 ML DISP.SYRIN SUBCUT SCH (10:29)
[2020-10-23] MEDS: DEXAMETHASONE SOD PHOSPHATE INJ 4 MG/1 ML VIAL IV SCH ×2 (10:29→22:07)
[2020-10-23] MEDS: CEFTRIAXONE 1 GM/D5W RTU 1 GM/50 ML RTUPB IV SCH (10:29)
[2020-10-23] MEDS: TICAGRELOR 90 MG TABLET PO SCH ×2 (10:30→22:07)
--- NOTE | 2020-10-23 10:53 | PDOC PROGRESS REPORT ---
Subjective Date:: 10/22/20 Subjective:: As per admitting physician's note LEO CURRY is a 60 year old male with a history of coronary artery disease and a 30-year smoking history who quit 8 years ago who presents with dyspnea. He said he started getting sick on or about 08 October 2020. He said a few days later he went to get tested for Covid on 11 October. He said the test was positive. He came here on Sep and was given some IV medication, a prescription for dexamethasone and azithromycin, and was sent home. He said he was feeling okay until yesterday when he started getting more short of breath. He said it is more prominent on exertion. He has had a cough. He has not been febrile that he is aware of. His dyspnea on exertion got to the point that he could not walk more than a few steps without getting very short of breath. He is normally very active and works full-time and has no physical limitations. His oxygen saturations are less than 94% on room air in the ER, and his chest imaging showed that he had bilateral alveolar opacities. 10/21/2020. Patient reporting mild improvement of her symptoms, still getting winded when he tries to exert himself, denies any fever, chills, nausea, vomiting. Complaining of nonproductive cough. Vitals have been stable, SPO2 WNL on 2 L. On second day of remdesivir. 10/22/2020. No acute events noted. Reports symptoms started on Monday systems. Third day of remdesivir. Denies any fever, chills, nausea, vomiting, diarrhea, constipation or any urinary symptoms. Reason For Visit: PNEUMONIA DUE TO COVID-19 VIRUS,HYPOXIA Physical Exam Vital Signs: Temp Pulse Resp BP Pulse Ox 98.1 F 65 18 131/80 H 97 10/23/20 08:13 10/23/20 08:45 10/23/20 08:45 10/23/20 03:52 10/23/20 08:45 Intake & Output 10/22/20 10/23/20 10/24/20 06:59 06:59 06:59 Intake Total 0513 1492 Output Total 1275 2250 Balance 788 -758 Weight 97.4 kg 97.6 kg General appearance: PRESENT: no acute distress, well-developed, well-nourished Head exam: PRESENT: atraumatic, normocephalic Respiratory exam: PRESENT: clear to auscultation gwen. ABSENT: rales, rhonchi, wheezes Cardiovascular exam: PRESENT: RRR. ABSENT: diastolic murmur, rubs, systolic murmur GI/Abdominal exam: PRESENT: normal bowel sounds, soft. ABSENT: distended, guarding, mass, organolmegaly, rebound, tenderness Neurological exam: PRESENT: alert, awake, oriented to person, oriented to place, oriented to time, oriented to situation, CN II-XII grossly intact. ABSENT: motor sensory deficit Results Laboratory Results: 10/23/20 06:28 10/23/20 06:28 10/23/20 10/23/20 06:28 06:28 WBC 15.3 H RBC 4.74 Hgb 14.2 Hct 42.0 MCV 89 MCH 29.8 MCHC 33.7 RDW 13.4 Plt Count 298 Seg Neutrophils % Not Reportable Sodium 134.4 L Potassium 4.8 Chloride 102 Carbon Dioxide 27 Anion Gap 5 BUN 28 H Creatinine 0.77 Est GFR ( Amer) > 60 Glucose 156 H Calcium 8.3 L Ferritin 687.00 H Total Bilirubin 0.6 AST 34 Alkaline Phosphatase 68 C-Reactive Protein 19.6 H Total Protein 5.7 L Albumin 2.8 L Impressions: Chest CT 10/19/20 15:55 IMPRESSION: Bilateral peripheral ground-glass opacities consistent with the clinical history of Covid 19. Assessment and Plan - Diagnosis (1) Acute hypoxemic respiratory failure Is this a current diagnosis for this admission?: Yes Plan: Improving. SPO2 WNL on 2 L nasal cannula. Most likely due to COVID-[address] chest on admission bilateral peripheral groundglass opacity consistent with clinical history of COVID-19. Day 3 IV remdesivir. Day 2 IV ceftriaxone. Completed course of azithromycin as outpatient. Continue empiric IV antibiotics, remdesivir, steroids, duo nebs, supplemental oxygen, flutter valve, incentive spirometry. (2) Coronary artery disease Qualifiers: Coronary Disease-Associated Artery/Lesion type: [place] artery [place] vs. transplanted heart: [place] heart Associated angina: without angina Qualified Code(s): I25.10 - Atherosclerotic heart disease of [place] coronary artery without angina pectoris Is this a current diagnosis for this admission?: Yes Plan: Denies any anginal symptoms. Continue home meds. Adjust meds as needed. Outpatient PCP and cardiology follow-up. (3) Former smoker Is this a current diagnosis for this admission?: Yes Plan: Counseled on abstinence. (4) Pneumonia due to COVID-19 virus Is this a current diagnosis for this admission?: Yes Plan: As per patient tested positive for COVID-19 on 10/11/2020. Plan of care as per #1. - Time Time Spent with patient: 25-34 minutes Anticipated Discharge Disposition: Home, Self Care Anticipated Discharge Timeframe: within 72 hours
--- NOTE | 2020-10-23 10:56 | PDOC PROGRESS REPORT ---
Subjective Date:: 10/23/20 Subjective:: As per admitting physician's note LEO CURRY is a 60 year old male with a history of coronary artery disease and a 30-year smoking history who quit 8 years ago who presents with dyspnea. He said he started getting sick on or about 08 October 2020. He said a few days later he went to get tested for Covid on 11 October. He said the test was positive. He came here on Sep and was given some IV medication, a prescription for dexamethasone and azithromycin, and was sent home. He said he was feeling okay until yesterday when he started getting more short of breath. He said it is more prominent on exertion. He has had a cough. He has not been febrile that he is aware of. His dyspnea on exertion got to the point that he could not walk more than a few steps without getting very short of breath. He is normally very active and works full-time and has no physical limitations. His oxygen saturations are less than 94% on room air in the ER, and his chest imaging showed that he had bilateral alveolar opacities. 10/21/2020. Patient reporting mild improvement of her symptoms, still getting winded when he tries to exert himself, denies any fever, chills, nausea, vomiting. Complaining of nonproductive cough. Vitals have been stable, SPO2 WNL on 2 L. On second day of remdesivir. 10/22/2020. No acute events noted. Reports symptoms started on Monday systems. Third day of remdesivir. Denies any fever, chills, nausea, vomiting, diarrhea, constipation or any urinary symptoms. 10/23/2020. No acute events overnight. SPO2 WNL on 2 L, follow-up day of remdesivir. Reports moderate improvement of symptoms. Denies any fever, chills, nausea, vomiting, diarrhea, constipation or any urinary symptoms. Reason For Visit: PNEUMONIA DUE TO COVID-19 VIRUS,HYPOXIA Physical Exam Vital Signs: Temp Pulse Resp BP Pulse Ox 98.1 F 65 18 131/80 H 97 10/23/20 08:13 10/23/20 08:45 10/23/20 08:45 10/23/20 03:52 10/23/20 08:45 Intake & Output 11/26/20 11/27/20 11/28/20 06:59 06:59 06:59 Intake Total 7298 1492 Output Total 1275 2250 Balance 788 -758 Weight 97.4 kg 97.6 kg General appearance: PRESENT: no acute distress, obese, well-developed, well- nourished Head exam: PRESENT: atraumatic, normocephalic Respiratory exam: PRESENT: clear to auscultation gwen. ABSENT: rales, rhonchi, wheezes Cardiovascular exam: PRESENT: RRR. ABSENT: diastolic murmur, rubs, systolic murmur GI/Abdominal exam: PRESENT: normal bowel sounds, soft. ABSENT: distended, guarding, mass, organolmegaly, rebound, tenderness Neurological exam: PRESENT: alert, awake, oriented to person, oriented to place, oriented to time, oriented to situation, CN II-XII grossly intact. ABSENT: motor sensory deficit Results Laboratory Results: 10/23/20 06:28 10/23/20 06:28 10/23/20 10/23/20 06:28 06:28 WBC 15.3 H RBC 4.74 Hgb 14.2 Hct 42.0 MCV 89 MCH 29.8 MCHC 33.7 RDW 13.4 Plt Count 298 Seg Neutrophils % Not Reportable Sodium 134.4 L Potassium 4.8 Chloride 102 Carbon Dioxide 27 Anion Gap 5 BUN 28 H Creatinine 0.77 Est GFR ( Amer) > 60 Glucose 156 H Calcium 8.3 L Ferritin 687.00 H Total Bilirubin 0.6 AST 34 Alkaline Phosphatase 68 C-Reactive Protein 19.6 H Total Protein 5.7 L Albumin 2.8 L Impressions: Chest CT 10/19/20 15:55 IMPRESSION: Bilateral peripheral ground-glass opacities consistent with the clinical history of Covid 19. Assessment and Plan - Diagnosis (1) Acute hypoxemic respiratory failure Is this a current diagnosis for this admission?: Yes Plan: Improving. SPO2 WNL on 2 L nasal cannula. Most likely due to COVID-[address] chest on admission bilateral peripheral groundglass opacity consistent with clinical history of COVID-19. Day 4 IV remdesivir. Day 3 IV ceftriaxone. Completed course of azithromycin as outpatient. Continue empiric IV antibiotics, remdesivir, steroids, duo nebs, supplemental oxygen, flutter valve, incentive spirometry. (2) Coronary artery disease Qualifiers: Coronary Disease-Associated Artery/Lesion type: [place] artery [place] vs. transplanted heart: [place] heart Associated angina: without angina Qualified Code(s): I25.10 - Atherosclerotic heart disease of [place] coronary artery without angina pectoris Is this a current diagnosis for this admission?: Yes Plan: Denies any anginal symptoms. Continue home meds. Adjust meds as needed. Outpatient PCP and cardiology follow-up. (3) Former smoker Is this a current diagnosis for this admission?: Yes Plan: Counseled on abstinence. (4) Pneumonia due to COVID-19 virus Is this a current diagnosis for this admission?: Yes Plan: As per patient tested positive for COVID-19 on 10/11/2020. Plan of care as per #1. (5) Obesity Is this a current diagnosis for this admission?: Yes Plan: BMI 29.2. Diet and lifestyle modification recommended. - Time Time Spent with patient: 25-34 minutes Medications reviewed and adjusted accordingly: Yes Anticipated Discharge Disposition: Home, Self Care Anticipated Discharge Timeframe: within 24 hours
[2020-10-23] MEDS: REMDESIVIR 100 MG in NORMAL SALINE 250 ML IV SCH (22:07)
[2020-10-23] MEDS: ATORVASTATIN CALCIUM 80 MG TABLET PO SCH (22:07)
[2020-10-24 06:44] LABS: HEMATOCRIT 42.8 % (37.9-51.0); HEMOGLOBIN 14.4 g/dL (13.5-17.0); MEAN CORPUSCULAR HEMOGLOBIN 29.8 pg (27.0-33.4); MEAN CORPUSCULAR HGB CONC 33.6 g/dL (32.0-36.0); MEAN CORPUSCULAR VOLUME 89 fl (80-97); PLATELET COUNT 315 10^3/uL (150-450); RED BLOOD COUNT 4.82 10^6/uL (4.35-5.55); RED CELL DISTRIBUTION WIDTH 13.5 % (11.5-14.0); WHITE BLOOD COUNT 17.6 10^3/uL (4.0-10.5)
[2020-10-24 07:00] LABS: ALBUMIN 2.8 g/dL (3.5-5.0); ALKALINE PHOSPHATASE 69 U/L (38-126); ANION GAP 7 (5-19); ASPARTATE AMINO TRANSFERASE 28 U/L (17-59); BILIRUBIN,TOTAL 0.7 mg/dL (0.2-1.3); BLOOD UREA NITROGEN 26 mg/dL (7-20); C-REACTIVE PROTEIN 11.6 mg/L (<10.0); CALCIUM 8.3 mg/dL (8.4-10.2); CARBON DIOXIDE 26 mmol/L (22-30); CHLORIDE 102 mmol/L (98-107); GLUCOSE 149 mg/dL (75-110); POTASSIUM 4.5 mmol/L (3.6-5.0); TOTAL PROTEIN 5.8 g/dL (6.3-8.2)
[2020-10-24 08:01] LABS: ABSOLUTE LYMPHOCYTES# (MANUAL) 0.4 10^3/uL (0.5-4.7); ABSOLUTE MONOCYTES # (MANUAL) 1.1 10^3/uL (0.1-1.4); BASOPHILS % (MANUAL) 0 % (0-2); EOSINOPHILS % (MANUAL) 0 % (0-6); LYMPHOCYTES % (MANUAL) 2 % (13-45); MONOCYTES % (MANUAL) 6 % (3-13); SEGMENTED NEUTROPHILS % (MAN) 92 % (42-78); TOTAL CELLS COUNTED 100
[2020-10-24 08:02] LABS: PLATELET COMMENT ADEQUATE; RBC MORPHOLOGY COMMENT NORMO-CYTIC/CHROMIC
[2020-10-24] MEDS: PANTOPRAZOLE SODIUM 20 MG TABLET.DR PO SCH (08:19)
[2020-10-24] MEDS: IPRATROPIUM/ALBUTEROL 0.5-2.5 MG/3 ML AMPUL NEB SCH (08:20)
[2020-10-24 08:23] VITALS: BP 135/75
--- NOTE | 2020-10-24 12:35 | PDOC DISCHARGE SUMMARY ---
Impression - Admit/DC Date/PCP Admission Date/Primary Care Provider: 10/19/20 17:52 IKE MORELOS MD Discharge Date: 10/24/20 - Discharge Diagnosis (1) Acute hypoxemic respiratory failure Is this a current diagnosis for this admission?: Yes (2) Coronary artery disease Is this a current diagnosis for this admission?: Yes (3) Former smoker Is this a current diagnosis for this admission?: Yes (4) Pneumonia due to COVID-19 virus Is this a current diagnosis for this admission?: Yes (5) Obesity Is this a current diagnosis for this admission?: Yes - Additional Information Discharge Diet: As Tolerated Discharge Activity: Activity As Tolerated, Balance Activity w/Rest, Slowly Increase Activity Referrals: IKE MORELOS MD [Primary Care Provider] - Follow up as needed (Patient will have to make own appointment. [facility] does not allow anyone but patient to make appointment.) Home Medications: Albuterol Sulfate [Proair HFA Inhalation Aerosol 8.5 gm MDI] 2 puff IH Q4HP PRN 10/19/20 Aspirin [Adult Aspirin Regimen] 81 mg PO DAILY 10/19/20 Losartan Potassium [Cozaar 25 mg Tablet] 25 mg PO DAILY 10/19/20 Metoprolol Succinate [Toprol Xl 25 mg Tab.sr] 12.5 mg PO DAILY 10/19/20 Pantoprazole Sodium [Protonix [address] Tablet] 20 mg PO QAM 10/19/20 Ranolazine [Ranexa 500 mg Tab.sr] 500 mg PO Q12 10/19/20 Rosuvastatin Calcium [Crestor] 40 mg PO QHS 10/19/20 Ticagrelor [Brilinta 90 mg Tablet] 1 tab PO BID 10/19/20 History of Present Illiness History of Present Illness: As per admitting physician's note LEO CURRY is a 60 year old male with a history of coronary artery disease and a 30-year smoking history who quit 8 years ago who presents with dyspnea. He said he started getting sick on or about 08 October 2020. He said a few days later he went to get tested for Covid on 11 October. He said the test was positive. He came here on 14 October and was given some IV medication, a prescription for dexamethasone and azithromycin, and was sent home. He said he was feeling okay until yesterday when he started getting more short of breath. He said it is more prominent on exertion. He has had a cough. He has not been febrile that he is aware of. His dyspnea on exertion got to the point that he could not walk more than a few steps without getting very short of breath. He is normally very active and works full-time and has no physical limitations. His oxygen saturations are less than 94% on room air in the ER, and his chest imaging showed that he had bilateral alveolar opacities. Hospital Course Hospital Course: (1) Acute hypoxemic respiratory failure Resolved. SPO2 WNL on RA. Most likely due to COVID-[address] chest on admission bilateral peripheral groundglass opacity consistent with clinical history of COVID-19. Received 4 days of IV remdesivir. Received 4 days of IV ceftriaxone. Completed course of azithromycin as outpatient. (2) Coronary artery disease Denied any anginal symptoms. Continued home meds. (3) Former smoker Counseled on abstinence. (4) Pneumonia due to COVID-19 virus As per patient tested positive for COVID-19 on 10/11/2020. Plan of care as per #1. (5) Obesity BMI 29.2. Diet and lifestyle modification recommended. Physical Exam Vital Signs: Temp Pulse Resp BP Pulse Ox 97.4 F 55 L 16 135/75 H 96 10/24/20 08:22 10/24/20 08:22 10/24/20 08:22 10/24/20 08:22 10/24/20 08:22 Intake & Output 10/23/20 10/24/20 10/25/20 06:59 06:59 06:59 Intake Total 1492 1555 Output Total 9390 5235 Balance -758 -1270 Weight 97.6 kg 91.7 kg General appearance: PRESENT: no acute distress, well-developed, well-nourished Head exam: PRESENT: atraumatic, normocephalic Neck exam: ABSENT: carotid bruit, JVD, lymphadenopathy, thyromegaly Respiratory exam: PRESENT: clear to auscultation gwen. ABSENT: rales, rhonchi, wheezes Cardiovascular exam: PRESENT: RRR. ABSENT: diastolic murmur, rubs, systolic murmur GI/Abdominal exam: PRESENT: normal bowel sounds, soft. ABSENT: distended, guarding, mass, organolmegaly, rebound, tenderness Extremities exam: PRESENT: full ROM. ABSENT: calf tenderness, clubbing, pedal edema Neurological exam: PRESENT: alert, awake, oriented to person, oriented to place, oriented to time, oriented to situation, CN II-XII grossly intact. ABSENT: motor sensory deficit Results Laboratory Results: WBC 17.6 10^3/uL (4.0-10.5) H 10/24/20 06:31 RBC 4.82 10^6/uL (4.35-5.55) 10/24/20 06:31 Hgb 14.4 g/dL (13.5-17.0) 10/24/20 06:31 Hct 42.8 % (37.9-51.0) 10/24/20 06:31 MCV 89 fl (80-97) 10/24/20 06:31 MCH 29.8 pg (27.0-33.4) 10/24/20 06:31 MCHC 33.6 g/dL (32.0-36.0) 10/24/20 06:31 RDW 13.5 % (11.5-14.0) 10/24/20 06:31 Plt Count 315 10^3/uL (150-450) 10/24/20 06:31 Lymph % (Auto) Not Reportable 10/24/20 06:31 [place] % (Auto) Not Reportable 10/24/20 06:31 Eos % (Auto) Not Reportable 10/24/20 06:31 Baso % (Auto) Not Reportable 10/24/20 06:31 Absolute Neuts (auto) Not Reportable 10/24/20 06:31 Absolute Lymphs (auto) Not Reportable 10/24/20 06:31 Absolute Monos (auto) Not Reportable 10/24/20 06:31 Absolute Eos (auto) Not Reportable 10/24/20 06:31 Absolute Basos (auto) Not Reportable 10/24/20 06:31 Total Counted 100 10/24/20 06:31 Seg Neutrophils % Not Reportable 10/24/20 06:31 Seg Neuts % (Manual) 92 % (42-78) H 10/24/20 06:31 Band Neutrophils % 2 % (3-5) L 10/23/20 06:28 Lymphocytes % (Manual) 2 % (13-45) L 10/24/20 06:31 Atypical Lymphs % 1 % (0) 10/21/20 05:48 Monocytes % (Manual) 6 % (3-13) 10/24/20 06:31 Eosinophils % (Manual) 0 % (0-6) 10/24/20 06:31 Basophils % (Manual) 0 % (0-2) 10/24/20 06:31 Promyelocytes % 3 % (0) H 10/21/20 05:48 Abs Neuts (Manual) 16.2 10^3/uL (1.7-8.2) H 10/24/20 06:31 Abs Lymphs (Manual) 0.4 10^3/uL (0.5-4.7) L 10/24/20 06:31 Abs Monocytes (Manual) 1.1 10^3/uL (0.1-1.4) 10/24/20 06:31 Absolute Eos (Manual) 0.0 10^3/uL (0.0-0.6) 10/24/20 06:31 Abs Basophils (Manual) 0.0 10^3/uL (0.0-0.2) 10/24/20 06:31 Clumped Platelets PRESENT 10/23/20 06:28 Large Platelets PRESENT 10/19/20 17:45 Platelet Comment ADEQUATE 10/24/20 06:31 Polychromasia SLIGHT 10/21/20 05:48 Poikilocytosis SLIGHT 10/20/20 05:42 Anisocytosis SLIGHT 10/21/20 05:48 Tear Drop Cells SLIGHT 10/20/20 05:42 Ovalocytes SLIGHT 10/19/20 17:45 RBC Morph Comment NORMO-CYTIC/CHROMIC 10/24/20 06:31 D-Dimer 0.35 ug/mL (0.00-0.50) 10/23/20 18:00 Sodium 134.6 mmol/L (137-145) L 10/24/20 06:31 Potassium 4.5 mmol/L (3.6-5.0) 10/24/20 06:31 Chloride 102 mmol/L (98-107) 10/24/20 06:31 Carbon Dioxide 26 mmol/L (22-30) 10/24/20 06:31 Anion Gap 7 (5-19) 10/24/20 06:31 BUN 26 mg/dL (7-20) H 10/24/20 06:31 Creatinine 0.76 mg/dL (0.52-1.25) 10/24/20 06:31 Est GFR ( Amer) > 60 (>60) 10/24/20 06:31 Est GFR (MDRD) Non-Af > 60 (>60) 10/24/20 06:31 Glucose 149 mg/dL (75-110) H 10/24/20 06:31 Calcium 8.3 mg/dL (8.4-10.2) L 10/24/20 06:31 Iron 30.3 ug/dL (49-181) L 10/19/20 17:45 Ferritin 636.00 ng/mL (17.9-464.0) H 10/24/20 06:31 Total Bilirubin 0.7 mg/dL (0.2-1.3) 10/24/20 06:31 Direct Bilirubin 0.0 mg/dL (0.0-0.4) 10/24/20 06:31 Neonat Total Bilirubin Not Reportable 10/24/20 06:31 Neonat Direct Bilirubin Not Reportable 10/24/20 06:31 Neonat Indirect Bili Not Reportable 10/24/20 06:31 AST 28 U/L (17-59) 10/24/20 06:31 ALT 77 U/L (<50) H 10/24/20 06:31 Alkaline Phosphatase 69 U/L (38-126) 10/24/20 06:31 Lactate Dehydrogenase 344 U/L (120-246) H 10/19/20 17:45 C-Reactive Protein 11.6 mg/L (<10.0) H 10/24/20 06:31 Total Protein 5.8 g/dL (6.3-8.2) L 10/24/20 06:31 Albumin 2.8 g/dL (3.5-5.0) L 10/24/20 06:31 Slides for Path Review PATHOLOGIST REVIEWED 10/21/20 05:48 Impressions: Chest CT 10/19/20 15:55 IMPRESSION: Bilateral peripheral ground-glass opacities consistent with the clinical history of Covid 19. Stroke Is this a Stroke Patient?: No Acute Heart Failure Is this a Heart Failure Patient?: No
== END 2020-10-24 09:02 | disposition home or self-care (01) | DRG 177 ==
LOC: ER 12:46 → EH 17:52 → 3W 19:57
PROVIDERS: ADMIT Family Medicine; ATTEND Internal Medicine
PROC: XW033E5 Introduction of Remdesivir Anti-infective into Peripheral Vein, Percutaneous Approach, New Technology Group 5 (ICD-10-PCS; principal; 2020-10-19)
PROC: 3E02340 Introduction of Influenza Vaccine into Muscle, Percutaneous Approach (ICD-10-PCS; 2020-10-24)
DX: U07.1 COVID-19 (principal); J12.89 Other viral pneumonia; J96.01 Acute respiratory failure with hypoxia; I25.10 Atherosclerotic heart disease of native coronary artery without angina pectoris; E66.9 Obesity, unspecified; E78.5 Hyperlipidemia, unspecified; I25.2 Old myocardial infarction; Z68.29 Body mass index [BMI] 29.0-29.9, adult; Z87.891 Personal history of nicotine dependence; Z23 Encounter for immunization; Z79.899 Other long term (current) drug therapy; Z79.82 Long term (current) use of aspirin; Z95.5 Presence of coronary angioplasty implant and graft
CPT/HCPCS: 36415; 71250; 80053; 82728; 83540; 83615; 85025; 85379; 86140; 90471; 90686; 93005; 93010; 94640; 94667; 94668; 94799; 99285; G0008; J0696; J1100; J1650; J3490; J7050